=== PATIENT | female | born 2000 | race Caucasian/White ===

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

== ENCOUNTER 2018-01-26 22:23 | Emergency (ER) | payer OTHER ==
[~2018-01-26] VITALS: Ht 162.6 cm; Wt 81.6 kg
[2018-01-26 22:39] VITALS: BP 128/76
[2018-01-26 23:06] LABS: APPEARANCE,URINE Clear (CLEAR); BILIRUBIN,URINE Negative (NEGATIVE); BLOOD, URINE Moderate Ery/uL (NEGATIVE); COLOR,URINE Yellow (YELLOW); KETONES,URINE 15 (NEGATIVE); LEUKOCYTE ESTERASE ,URINE Negative (NEGATIVE); NITRITE, URINE Negative (NEGATIVE); PROTEIN,URINE Trace mg/dl (NEGATIVE); UGLUCOSE Negative (NEGATIVE); UROBILINOGEN,URINE 0.2 EU/dL (0.2)
[2018-01-26 23:50] LABS: BACTERIA,URINE Few /HPF (None Seen); SQUAMOUS EPITHELIAL CELL,UR Few /HPF (None Seen); WBC,URINE 0-2 /HPF (0-3)
== END 2018-01-27 00:17 | disposition home or self-care (01) ==
LOC: ER 22:34
DX: N92.1 Excessive and frequent menstruation with irregular cycle (principal); R31.9 Hematuria, unspecified
CPT/HCPCS: 81000-TC; 84703-TC; A4606; Z7610

== ENCOUNTER 2018-06-28 13:47 | Emergency (ER) | payer OTHER ==
[~2018-06-28] VITALS: Ht 162.6 cm; Wt 81.6 kg
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
--- NOTE | 2018-06-28 14:38 | NUR ---
URINE SAMPLE SENT TO LAB
--- NOTE | 2018-06-28 15:11 | NUR ---
WHEELED OUT VIA WHEELCHAIR FOR XRAY
--- NOTE | 2018-06-28 16:03 | NUR ---
Patient discharged to home in stable condition. Written and verbal after care instructions given. Patient verbalizes understanding of instruction.
[2018-06-28 16:06] VITALS: BP 136/87
== END 2018-06-28 16:07 | disposition home or self-care (01) ==
LOC: ER 13:54
DX: S16.1XXA Strain of muscle, fascia and tendon at neck level, initial encounter (principal); S20.212A Contusion of left front wall of thorax, initial encounter; M25.531 Pain in right wrist; V47.5XXA Car driver injured in collision with fixed or stationary object in traffic accident, initial encounter; Y93.89 Activity, other specified; Y92.413 State road as the place of occurrence of the external cause; Y99.8 Other external cause status
CPT/HCPCS: 71111-TC; 72050-TC; 73110; 84703-TC